=== PATIENT | female | born 1990 | race Caucasian/White ===

== ENCOUNTER 2021-06-20 19:18 | Emergency (ER) | payer BC ==
[~2021-06-20] VITALS: Ht 157.5 cm; Wt 55.1 kg
[2021-06-20 19:23] VITALS: BP 112/72
--- NOTE | 2021-06-20 19:35 | NUR ---
PT AMBULATED TO BED #5
--- NOTE | 2021-06-20 19:41 | NUR ---
DR. GERARDO EVALUATING PATIENT
--- NOTE | 2021-06-20 19:50 | NUR ---
30 YO F BIB SELF WITH C/C OF 10/10 FOREHEAD PAIN S/P HITTING HEAD ON GLASS TABLE XYESTERDAY. PT STATES AFTER HITTING HEAD PT "BLACKED OUT". REPORTS FEELING DIZZY AND OUT OF IT. +LIGHT SENSITIVTY. STATES SHE WENT TO URGENT CARE WAS TOLD SHE HAS DECREASED SENSATION ON R SIDE OF FACE, INSTRUCTED TO COME TO ER FOR CT. DENIES TAKING MEDICATION FOR PAIN. HX: SCOLIOSIS DENIES RX AND ALLERGIES
--- NOTE | 2021-06-20 19:50 | NUR ---
Tiffanie pitt in ED - 06/20/21 at 2026 by SAMIRA UPON ARRIVAL TO BED 5 PT STATES SHE HAS HAD A SORE THROAT AND THAT IS WHY SHE IS HERE, FOR A COVID TEST
[2021-06-20 20:25] VITALS: BP 112/72
--- NOTE | 2021-06-20 20:25 | NUR ---
Patient discharged with v/s stable. Written and verbal after care instructions given and explained. Patient verbalized understanding. Ambulatory with steady gait. All questions addressed prior to discharge. Advised to follow up with PMD.
== END 2021-06-20 20:25 | disposition home or self-care (01) ==
LOC: MED 19:18
DX: S06.0X9A Concussion with loss of consciousness of unspecified duration, initial encounter (principal); R11.0 Nausea; R42 Dizziness and giddiness; W01.198A Fall on same level from slipping, tripping and stumbling with subsequent striking against other object, initial encounter; Y93.89 Activity, other specified; Y92.89 Other specified places as the place of occurrence of the external cause; Y99.8 Other external cause status
CPT/HCPCS: 99281